=== PATIENT | female | born 1995 | race Hispanic/Latino ===

== ENCOUNTER 2021-07-05 18:59 | Inpatient (IN) | payer MEDICAID ==
[~2021-07-05] VITALS: Ht 162.6 cm; Wt 82.6 kg
[2021-07-05] MEDS ORDERED: LACTATED RINGERS 1000ML 1,000 ML IV PRN (19:30)
[2021-07-05 20:27] LABS: HEMATOCRIT 31.2 % (36-48); MEAN CORPUSCULAR HEMOGLOBIN 28.3 pg (27.0-33.0); MEAN CORPUSCULAR HGB CONC 33.3 g/dL (32.0-36.0); RED BLOOD CELL COUNT(AUTO) 3.67 MIL/uL (4.00-5.50); RED CELL DISTRIBUTION WIDTH 13.6 % (11.0-15.5)
[2021-07-05 20:28] LABS: APPEARANCE,URINE Cloudy (CLEAR); BILIRUBIN,URINE Negative (NEGATIVE); COLOR,URINE Yellow (YELLOW); GLUCOSE, URINE (UA) Negative (NEGATIVE); KETONES,URINE Negative (NEGATIVE); LEUKOCYTE ESTERASE ,URINE Moderate (NEGATIVE); NITRATE,URINE Negative (NEGATIVE); OCCULT BLOOD,URINE Negative (NEGATIVE); PH,URINE 6.5 (5.0-8.0); PROTEIN,URINE Negative (NEGATIVE)
[2021-07-05] MEDS ORDERED: DINOPROSTONE 10 MG VAGINAL SUPP VG SCH (20:30)
[2021-07-05 20:36] LABS: BACTERIA,URINE None Seen /HPF (None Seen); RBC,URINE None Seen /HPF (0-1); SQUAMOUS EPITHELIAL CELL,UR Moderate /HPF (0-2)
[2021-07-05 21:06] LABS: AMPHET/METH SCREEN,URINE NEGATIVE (NEGATIVE); BARBITURATE SCREEN, URINE NEGATIVE (NEGATIVE); BENZODIAZEPINES SCREEN,URINE NEGATIVE (NEGATIVE); CANNABINOID SCREEN,URINE NEGATIVE (NEGATIVE); COCAINE SCREEN,URINE NEGATIVE (NEGATIVE); OPIATE SCREEN,URINE NEGATIVE (NEGATIVE); PHENCYCLIDINE SCREEN,URINE NEGATIVE (NEGATIVE)
[2021-07-06] MEDS ORDERED: OXYTOCIN-LR 20 UNITS/1000 ML 1,000 ML IV SCH (06:00)
[2021-07-06 07:02] LABS: RAPID PLASMA REAGIN NONREACTIVE (NONREACTIVE)
[2021-07-06] MEDS ORDERED: MAGNESIUM SULFATE 40GM/1000ML 1,000 ML IV PRN (09:00)
[2021-07-06] MEDS ORDERED: PROMETHAZINE HCL 25 MG/ML 1ML AMPULE IM PRN (09:00)
[2021-07-06] MEDS ORDERED: OXYTOCIN-LR 20 UNITS/1000 ML 1,000 ML IV PRN (09:00)
[2021-07-06] MEDS ORDERED: MAGNESIUM 4GM PREMIX 100ML 100 ML IV PRN (09:00)
[2021-07-06] MEDS ORDERED: MEPERIDINE-PF 75 MG/ML SYG IM PRN (09:00)
[2021-07-06] MEDS ORDERED: CALCIUM GLUC 1GM/10ML VIAL IV PRN (09:00)
[2021-07-06] MEDS ORDERED: LACTATED RINGERS 1000ML 1,000 ML IV SCH (09:00)
[2021-07-06] MEDS ORDERED: MISOPROSTOL 200 MCG TABLET ONE (15:21)
[2021-07-06] MEDS ORDERED: METHYLERGONOVINE MALEATE 0.2 MG/1 ML ML ONE (15:23)
[2021-07-06] MEDS ORDERED: LIDOCAINE HCL 1% 20 ML VIAL ONE (15:23)
[2021-07-06] MEDS ORDERED: CALDOLOR 800MG+NS 250ML 250 ML IV SCH (17:00)
[2021-07-06] MEDS ORDERED: WITCH HAZEL 1 PAD TP PRN (17:00)
[2021-07-06] MEDS ORDERED: ACETAMINOPHEN WITH CODEINE 1 TAB TAB PO PRN (17:00)
[2021-07-06] MEDS ORDERED: DIPH,PERTUSS(ACELL),TET VAC/PF 0.5 ML VIAL IM PRN (17:00)
[2021-07-06] MEDS ORDERED: BENZOCAINE/LANOLIN/ALOE VERA 60 ML AEROSOL TP PRN (17:00)
[2021-07-06] MEDS ORDERED: ACETAMINOPHEN 325 MG TAB PO PRN (17:00)
[2021-07-06] MEDS ORDERED: MEASLES/MUMPS/RUBELLA VACCINE, LIVE 0.5 ML/VIAL SQ PRN (17:00)
[2021-07-06] MEDS ORDERED: LANOLIN 30GM OINTMENT TP PRN (17:00)
[2021-07-06] MEDS: OXYTOCIN-LR 20 UNITS/1000 ML 1,000 ML IV SCH ×2 (17:17→17:32)
[2021-07-06 18:40] VITALS: BP 109/73
[2021-07-06] MEDS: IBUPROFEN 600 MG TABLET PO PRN (18:46)
[2021-07-06 19:23] VITALS: BP 117/77
[2021-07-06] MEDS: DOCUSATE SODIUM 100 MG CAP PO SCH (20:47)
[2021-07-06 23:04] VITALS: BP 120/73
[2021-07-07 04:00] VITALS: BP 113/78
[2021-07-07] MEDS: IBUPROFEN 600 MG TABLET PO PRN ×3 (04:03→15:31)
[2021-07-07 06:08] LABS: HEMATOCRIT 26.1 % (36-48); MEAN CORPUSCULAR HEMOGLOBIN 27.2 pg (27.0-33.0); MEAN CORPUSCULAR HGB CONC 32.6 g/dL (32.0-36.0); MEAN CORPUSCULAR VOLUME 83.4 fL (79-99); RED BLOOD CELL COUNT(AUTO) 3.13 MIL/uL (4.00-5.50); RED CELL DISTRIBUTION WIDTH 13.8 % (11.0-15.5); WHITE BLOOD COUNT (AUTO) 10.5 K/uL (4.8-10.8)
[2021-07-07 07:30] VITALS: BP 116/77
[2021-07-07] MEDS: DOCUSATE SODIUM 100 MG CAP PO SCH (08:56)
[2021-07-07 11:30] VITALS: BP 106/63
[2021-07-07] MEDS ORDERED: IBUP-2071 PO (13:56)
[2021-07-07] MEDS ORDERED: IBUP-2070 PO (13:57)
[2021-07-07] MEDS ORDERED: FERR325T22 PO (13:58)
[2021-07-07 15:31] VITALS: BP 111/68
== END 2021-07-07 18:10 | disposition home or self-care (01) | DRG 560 ==
LOC: LDH 18:59 → WSH 07-06 18:35
PROVIDERS: ADMIT Obstetrics & Gynecology; ATTEND Obstetrics & Gynecology
PROC: 10E0XZZ Delivery of Products of Conception, External Approach (ICD-10-PCS; principal; 2021-07-06)
PROC: 0HQ9XZZ Repair Perineum Skin, External Approach (ICD-10-PCS; 2021-07-06)
PROC: 3E033VJ Introduction of Other Hormone into Peripheral Vein, Percutaneous Approach (ICD-10-PCS; 2021-07-06)
PROC: 10907ZC Drainage of Amniotic Fluid, Therapeutic from Products of Conception, Via Natural or Artificial Opening (ICD-10-PCS; 2021-07-06)
PROC: 3E0P7GC Introduction of Other Therapeutic Substance into Female Reproductive, Via Natural or Artificial Opening (ICD-10-PCS; 2021-07-06)
DX: O80 Encounter for full-term uncomplicated delivery (principal); Z37.0 Single live birth; Z3A.39 39 weeks gestation of pregnancy
CPT/HCPCS: 36415; 80305; 81001; 85027; 86592; 86701; 86850; 86900; 86901; 87088; 87340; 87390; G0378; J2210; J2590; J7120

== ENCOUNTER 2023-07-31 19:57 | Observation (INO) | payer MEDICAID ==
[~2023-07-31] VITALS: Ht 162.6 cm; Wt 86.6 kg
[~2023-07-31 19:57] MED LIST: FERR325T22 PO; IBUP-2070 PO
[2023-07-31 20:40] VITALS: BP 121/84; PULSE 116; RESP 16
[2023-07-31 21:20] LABS: APPEARANCE,URINE CLEAR (CLEAR); BILIRUBIN,URINE NEGATIVE (NEGATIVE); COLOR,URINE LIGHT-YELLOW (YELLOW); GLUCOSE, URINE (UA) NEGATIVE (NEGATIVE); KETONES,URINE NEGATIVE (NEGATIVE); LEUKOCYTE ESTERASE ,URINE 75 Leu/uL (NEGATIVE); NITRATE,URINE NEGATIVE (NEGATIVE); OCCULT BLOOD,URINE NEGATIVE (NEGATIVE); PH,URINE 6.5 (5.0-8.0); PROTEIN,URINE NEGATIVE (NEGATIVE); UROBILINOGEN,URINE 0.2 mg/dL (0.2-1.0)
[2023-07-31 21:22] LABS: ADD UA MICROSCOPIC YES
[2023-07-31 21:28] LABS: BACTERIA,URINE RARE /HPF (None Seen); MUCUS,URINE RARE LPF (None Seen); RBC,URINE 0-1 /HPF (0-1); SQUAMOUS EPITHELIAL CELL,UR FEW /HPF (0-2)
[2023-08-08] MEDS ORDERED: IBUP-2088 PO (16:28)
== END 2023-07-31 22:05 | disposition home or self-care (01) ==
LOC: EDH 19:57 → LDH 19:58
PROVIDERS: ADMIT Obstetrics & Gynecology; ATTEND Obstetrics & Gynecology
DX: O36.8130 Decreased fetal movements, third trimester, not applicable or unspecified (principal); O26.893 Other specified pregnancy related conditions, third trimester; R10.9 Unspecified abdominal pain; Z3A.38 38 weeks gestation of pregnancy
CPT/HCPCS: 87088; 81001; 76819; G0378 ×2; G0379; 59025